=== PATIENT | female | born 1935 | race Caucasian/White ===

== ENCOUNTER → 2023-03-31 | Outpatient (CLI) | payer MEDICARE ==
[~2023-03-31] MED LIST: REGADENOSON 0.4 MG/5 ML PF SYG IVP ONE
== END | disposition home or self-care (01) ==
LOC: SHCH 08:12
PROVIDERS: ATTEND Internal Medicine Cardiovascular Disease
DX: R07.9 Chest pain, unspecified (principal)
CPT/HCPCS: 78452; 96374; 93017; J2785; A9500 ×2

== ENCOUNTER 2025-06-13 13:16 | Emergency (ER) | payer MEDICARE ==
[~2025-06-13] VITALS: Ht 165.1 cm; Wt 53.1 kg
--- NOTE | 2025-06-13 13:39 | ERN ---
General Chief Complaint: Arm Swelling/Redness Stated Complaint: LEFT ARM SWELLING Time Seen by MD: 13:20 Source: patient History of Present Illness Initial Comments Patient is a 89-year-old female coming in complaining of left elbow left wrist pain. Per patient she fell down a week ago. She was evaluated by PCP imaging studies were performed but no acute findings were present. Two days ago she started presenting with left elbow swelling ecchymosis so she is here for further evaluation. Allergies: Coded Allergies: No Known Allergies (Unverified Allergy, Unknown, 06/13/25) Past Medical History Past Medical History: Arthritis, High Cholesterol, Hypertension Medical History Other: NEUROPATHY, THYROID Past Surgical History: None ROS Dictation CONSTITUTIONAL: No chills, no fever, no weakness, no diaphoresis, no malaise. HEAD/FACE: No signs of trauma. EENT: No eye pain, no blurred vision, no tearing, no double vision, no ear pain, no ear discharge, no nose pain, no nasal congestion, no throat pain, no throat swelling, no mouth pain. RESPIRATORY: No cough, no orthopnea, no SOB, no stridor, no wheezing. CARDIOVASCULAR: No chest pain, no edema, no palpitations, no syncope. GASTROINTESTINAL/ABDOMINAL: No abdominal pain, no constipation, no diarrhea, no nausea, no vomiting. GENITOURINARY: No abnormal discharge, no dysuria, no frequent urination, no hematuria. No complaints of pain in the genitals. MUSCULOSKELETAL: No back pain, no gout, no joint pain, no joint swelling, no muscle pain, no muscle stiffness, no neck pain. INTEGUMENTARY: No change in color, no change in hair/nails, no dryness, no lesion, no lumps, no rash. NEUROLOGICAL/PSYCH: No anxiety, not depressed, no emotional problem, no headache, no numbness, no pre-existing deficit, no history of seizures, no tremors, no weakness. HEMATOLOGIC/LYMPHATIC: Not anemic, no history of blood clots, no apparent bleeding, no bruising, glands not swollen. All Systems Negative, Except as Noted. Physical Exam Physical Exam Dictation VITAL SIGNS: Reviewed. GENERAL APPEARANCE: Alert, oriented x3, no acute distress, obese. HEAD AND FACE: Non-traumatic. EYES: PERRL, pink conjunctivas, eyelid no trauma, anterior chamber clear. EARS: Pinnas intact and no signs of trauma or erythema. Ear canals clear and no discharge. TMs no erythema. NOSE: No discharge, no bleeding. OROPHARYNX: Mouth normal, teeth no caries, tongue pink. Pharynx clear, no erythema. Tonsils no exudates, no abscesses noted. Mucous membrane moist. NECK: Supple, non-tender, no thyromegaly, no masses, no JVD, no bruits. BREAST: Deferred. CHEST: No tenderness, no crepitus, no paradoxical movement, no retractions. LUNGS: Clear, well-ventilated, symmetric, no rales, no wheezing, no rhonchi, no stridor, good breath sounds bilaterally. HEART: Regular rate, regular rhythm, no murmur, no gallops. VASCULAR: No peripheral edema. ABDOMEN: Soft, positive bowel sounds, nondistended, no guarding, nontender, no rebound, no masses no hepatomegaly, no splenomegaly, no Mcdonough's sign, no hernias. RECTAL: Deferred. GENITAL: Deferred. NEUROLOGICAL: Normal speech, gross motor function intact, gross sensory function intact. MUSCULOSKELETAL: Neck nontender, full range of motion, back nontender, full range of motion. EXTREMITIES: Nontender, full range of motion. SKIN: Color pink, dry, no turgor, no rash, no lacerations, no abrasions, no contusions. LYMPHATICS: Deferred. Results Laboratory and Microbiology Labs Reviewed?: Yes EKG/XRAY/US/CT/MRI X-RAY Comment [address] [id number] IMAGING REPORT Signed PATIENT: JENNIFER GIBSON MR#: [id number] : 1935 SEX: F AGE: 89 LOCATION: ED ORDER 1326 STATUS: REG REPORT#: [id number] SERVICE 1324 REASON: pain ORDERING PHYSICIAN: JANELL RIOS MD PROCEDURE: [id number] - ELBOW 2VWS LT EXAM: CR left elbow, 2 View. CLINICAL HISTORY: pain COMPARISON: None provided. FINDINGS: BONES: No acute fracture or aggressive appearing osseous lesion. JOINTS: The joint spaces appear within normal limits. No dislocation. No radiographic evidence of a joint effusion. SOFT TISSUES: Severe olecranon bursitis. Severe soft tissue edema at the dorsal aspect of the proximal forearm. IMPRESSION: 1. Severe olecranon bursitis with severe soft tissue edema at the dorsal aspect of the proximal forearm. 2. No acute fracture or dislocation. /[place] DICTATED BY: ESTEVAN VARELA Jr., MD DATE: 06/13/25 160 ELECTRONICALLY SIGNED BY: ESTEVAN VARELA Jr., MD DATE: 06/13/251603 [place] [address] IMAGING REPORT Signed PATIENT: JENNIFER GIBSON MR#: [id number] : 1935 SEX: F AGE: 89 LOCATION: EDH ORDER 25 STATUS: REG [facility] REPORT#: [id number] SERVICE 23 REASON: left arm swelling ORDERING PHYSICIAN: JANELL RIOS MD PROCEDURE: VENOUS UNI - US VENOUS DOPPLER UNILATERAL EXAM: US for Deep Venous Thrombosis, left Upper Extremity. CLINICAL HISTORY: left arm swelling TECHNIQUE: Real-time ultrasound scan of the veins of the left upper extremity with color Doppler flow, spectral waveform analysis and compression. COMPARISON: None provided. FINDINGS: VEINS: The internal jugular and subclavian veins demonstrate flow. The axillary, cephalic, basilic, and brachial veins are echolucent, compressible, and demonstrate normal color Doppler flow. SOFT TISSUES: No acute finding. IMPRESSION: 1. No acute findings in the left upper extremity deep veins. /[place] DICTATED BY: ESTEVAN VARELA Jr., MD DATE: 06/13/25 154 ELECTRONICALLY SIGNED BY: ESTEVAN VARELA Jr., MD DATE: 06/13/25 154 MDM MDM: Differential diagnosis: Olecranon bursitis, elbow contusion, Rationale: Tests considered and ordered secondary to shared decision making include: Previous outside records reviewed: Old ER visits. Risk of complication and/or morbidity or mortality of patient management: None Medications-Per medication reconciliation Need for hospitalization: Patient does not meet criteria for hospitalization. Need for emergency major/minor surgery: No There are no social concerns with this patient. Patient is a an 89-year-old female coming in complaining of left elbow pain. Ultrasound and x-ray did not disclose acute findings. Did advised her appropriate follow up with PCP for ongoing management evaluation. ED Course Orders Procedure Category Date Status Time Us Venous Doppler US 06/13/25 Resulted Unilateral 13:24 Elbow 2vws Lt RAD 06/13/25 Resulted 13:24 Vital Signs Date Time Temp Pulse Resp B/P (MAP) Pulse Ox O2 Delivery O2 Flow Rate FiO2 06/13/25 13:19 98.4 83 16 220/98 98 Room Air 0 DX & DISP Disposition: Discharge Departure Impression: Primary Impression: Olecranon bursitis Additional Impression: Elbow contusion Condition: Stable Scripts Diclofenac Sodium (Voltaren Arthritis Pain) 1 % Gel..gram. 5 GM TP BID for 7 Days, #1 TUBE Prov: JANELL RIOS MD 06/13/25 Additional Instructions: FOLLOW-UP WITH PRIMARY CARE PROVIDER IN 1 TO 2 DAYS. TAKE MEDICATIONS DIRECTED HERE IN THE EMERGENCY ROOM. OKAY TO CONTINUE HOME MEDICATIONS UNLESS OTHERWISE DISCUSSED DURING YOUR VISIT IN THE EMERGENCY ROOM TODAY. RETURN TO YOUR NEAREST EMERGENCY ROOM IF SYMPTOMS WORSEN OR IF THERE IS NO IMPROVEMENT. CALL 911 IF YOU NEED IMMEDIATE ASSISTANCE. TAKE TYLENOL [id number] NEEDED AND IF NO CONTRAINDICATIONS ARE PRESENT. INCREASE ORAL HYDRATION. A WOUND CULTURE OR URINE CULTURE WAS ORDERED HERE IN THE EMERGENCY ROOM DEPARTMENT PLEASE FOLLOW-UP WITH PRIMARY CARE PROVIDER AND ADVISE THEM TO GET REPORTS FROM OUR FACILITY. IF YOU HAD ANY GIOVANNI WRAP/SPLINTS THAT WERE APPLIED HERE, PLEASE DO NOT REMOVE THEM UNTIL YOU SEE YOUR PRIMARY CARE OR SPECIALTY. Referrals: Referrals: SELF,REFERRAL (PCP) NANCY SOTO MD, LUIS A MD Time of Disposition: 15:34 JANELL RIOS MD Jun 13, 2025 13:39
--- NOTE | 2025-06-13 14:41 | HMCIMG ---
EXAM: US for Deep Venous Thrombosis, left Upper Extremity. CLINICAL HISTORY: left arm swelling TECHNIQUE: Real-time ultrasound scan of the veins of the left upper extremity with color Doppler flow, spectral waveform analysis and compression. COMPARISON: None provided. FINDINGS: VEINS: The internal jugular and subclavian veins demonstrate flow. The axillary, cephalic, basilic, and brachial veins are echolucent, compressible, and demonstrate normal color Doppler flow. SOFT TISSUES: No acute finding. IMPRESSION: 1. No acute findings in the left upper extremity deep veins. /[place]
--- NOTE | 2025-06-13 15:05 | HMCIMG ---
EXAM: CR left elbow, 2 View. CLINICAL HISTORY: pain COMPARISON: None provided. FINDINGS: BONES: No acute fracture or aggressive appearing osseous lesion. JOINTS: The joint spaces appear within normal limits. No dislocation. No radiographic evidence of a joint effusion. SOFT TISSUES: Severe olecranon bursitis. Severe soft tissue edema at the dorsal aspect of the proximal forearm. IMPRESSION: 1. Severe olecranon bursitis with severe soft tissue edema at the dorsal aspect of the proximal forearm. 2. No acute fracture or dislocation. /[place]
[2025-06-13] MEDS ORDERED: DICL20GE TP (15:35)
[2025-06-13 15:46] VITALS: BP 172/78; PULSE 78; RESP 18; TEMP 98.4; O2SAT 98
== END 2025-06-13 15:48 | disposition home or self-care (01) ==
LOC: EDH 13:16
DX: S50.02XA Contusion of left elbow, initial encounter (principal); M79.632 Pain in left forearm; M70.22 Olecranon bursitis, left elbow; E78.00 Pure hypercholesterolemia, unspecified; I10 Essential (primary) hypertension; M19.90 Unspecified osteoarthritis, unspecified site; W18.39XA Other fall on same level, initial encounter; Y93.89 Activity, other specified; Y92.89 Other specified places as the place of occurrence of the external cause; Y99.8 Other external cause status
CPT/HCPCS: 73070; 93971; 99284